=== PATIENT | male | born 1955 | race Caucasian/White ===

== ENCOUNTER → 2018-10-02 | Outpatient (CLI) | payer MEDICARE ==
[~2018-10-02] MED LIST: DOLOPHINE HCL10 MG PO; FLEXERIL PO; IBUPROFEN 400400 M1 PO; LIORESAL 10 MG10 MG PO; LISINOPRIL20 MG PO; LORTAB 10-3251 EACH PO; NABUMETONE PO; NORCO 10-325 T1 EACH PO; PROTONIX40 M2 PO; XANAX 0.5 MG0.5 MG PO
== END ==
LOC: M.WC 10-01 13:00
DX: L03.115 Cellulitis of right lower limb (principal); G47.30 Sleep apnea, unspecified; I10 Essential (primary) hypertension; F32.9 Major depressive disorder, single episode, unspecified; Z87.891 Personal history of nicotine dependence; Z96.659 Presence of unspecified artificial knee joint; Z79.82 Long term (current) use of aspirin

== ENCOUNTER → 2018-10-04 | Outpatient (CLI) | payer MEDICARE | LOC: M.WC 04:57 | DX: L03.115 Cellulitis of right lower limb (principal); G47.30 Sleep apnea, unspecified; I10 Essential (primary) hypertension; F32.9 Major depressive disorder, single episode, unspecified; Z96.659 Presence of unspecified artificial knee joint; Z79.82 Long term (current) use of aspirin; Z87.891 Personal history of nicotine dependence ==

== ENCOUNTER → 2018-10-07 | Outpatient (CLI) | payer MEDICARE | LOC: M.WC 10-06 00:42 | DX: L03.115 Cellulitis of right lower limb (principal); G47.30 Sleep apnea, unspecified; I10 Essential (primary) hypertension; F32.9 Major depressive disorder, single episode, unspecified; Z87.891 Personal history of nicotine dependence ==

== ENCOUNTER → 2018-10-09 | Outpatient (CLI) | payer MEDICARE | LOC: M.WC 04:54 | DX: L03.115 Cellulitis of right lower limb (principal); G47.30 Sleep apnea, unspecified; I10 Essential (primary) hypertension; F32.9 Major depressive disorder, single episode, unspecified; Z87.891 Personal history of nicotine dependence ==

== ENCOUNTER 2020-02-09 06:09 | Inpatient (IN) | payer MEDICARE ==
[2020-02-03 10:21] LABS: ABSOLUTE BASOPHILS 0.1 thou/uL (0.0-0.2); ABSOLUTE LYMPHOCYTES 2.3 thou/uL (0.8-5.3); ABSOLUTE MONOCYTES 0.7 thou/uL (0.0-1.2); ABSOLUTE NEUTROPHILS 5.9 thou/uL (1.6-8.1); BASOPHILS 0.9 %; EOSINOPHILS 0.5 %; HEMATOCRIT 44.8 % (42.0-52.0); HEMOGLOBIN 15.9 gm/dL (14.0-18.0); LYMPHOCYTES 25.8 %; MCH 31.4 pg (26.0-34.0); MCHC 35.5 g/dL (28.0-37.0); MCV 88.5 fL (80.0-100.0); MONOCYTES 7.8 %; MPV 9.4 fl. (7.2-11.1); NUCLEATED RBCS 0 /100WBC; PLATELET COUNT* 165 thou/uL (150-400); RBC 5.06 mil/uL (4.50-6.00); RDW-CV 14.3 % (10.5-14.5); WBC 9.1 thou/uL (4.0-11.0)
[2020-02-03 10:32] LABS: APTT 26.4 Seconds (25.0-31.3); PROTIME 10.4 Seconds (9.20-11.50)
[2020-02-03 10:42] LABS: ALBUMIN 3.9 g/dL (3.4-5.0); CALCIUM 8.6 mg/dL (8.5-10.1); CREATININE 0.9 mg/dL (0.6-1.3); POTASSIUM 3.5 mmol/L (3.5-5.1); TOTAL BILIRUBIN 0.5 mg/dL (<0.1-1.0); TOTAL PROTEIN 7.1 g/dL (6.4-8.2)
[2020-02-03 11:46] LABS: ESR (SEDRATE) 2 mm/hr (0-20)
[2020-02-04 02:07] LABS: GLYCOHEMOGLOBIN (HGB A1C) 5.8 % (4.8-5.6)
[~2020-02-09] VITALS: Ht 175.3 cm; Wt 129.3 kg
[~2020-02-09 06:09] MED LIST changes: +CHLORTHALIDONE25 MG PO; +IBU800 MG PO; +LYRICA100 MG PO; +NORCO 10-325 T1 EAC1 PO
[2020-02-09 09:30] VITALS: BP 135/78
[2020-02-09 12:44] VITALS: BP 110/67
--- NOTE | 2020-02-09 15:26 | OP ---
[address] [address] OPERATIVE REPORT Name: JEREMY DUMONT Room: [address] Zohra Lopez#: [id number] Admission: 02/09/20 Attend Phys: Jazmyne Garcia Discharge: Date of : 55 Report #: [id number] THIS REPORT FOR: //name// cc: Caio Castillo MD, Dean L. MD ~ THIS REPORT FOR: //name// CC: Caio Stone DICTATED BY: Alireza Camarillo DO DATE OF SERVICE: 02/09/2020 PREOPERATIVE DIAGNOSIS: Advanced degenerative joint disease. POSTOPERATIVE DIAGNOSES: Advanced degenerative joint disease, right knee with flexion and varus fixed contractures. PROCEDURE PERFORMED: Complex right total knee arthroplasty due to the fixed varus and flexion deformity using the Biomet Vanguard system with the following components. 1. Size 65 PS femoral component. 2. Size 75 tibial baseplate. 3. Size 12-mm PS plus tibial bearing. 4. Size 34-mm asymmetric patella. 5. Two bags of Biomet bone cement. SURGEON: Vinh Collado DO [employer]ARMWORK[employer] DAIRY: Alireza Camarillo DO; and Molina Huang DO ANESTHESIA: General with continuous nerve block by Anesthesia. ESTIMATED BLOOD LOSS: 100 mL. COMPLICATIONS: None. SPECIMENS: None. DISPOSITION: Stable to PACU. ANTIBIOTICS: A 3 grams IV Ancef given preoperatively. TOURNIQUET: 86 minutes at [address] [address] OPERATIVE REPORT Name: JEREMY DUMONT Room: [address] John#: [id number] Admission: 02/09/20 Attend Phys: Jazmyne Garcia Discharge: Date of : 55 Report #: [id number] INDICATIONS: The patient is a 64-year-old male, who we follow in clinic for quite some time regarding right knee pain. He had known DJD. He failed all conservative measures. He had pain on a daily basis, which were interfering with his ADLs. He was therefore offered a total knee arthroplasty. Of note, he had his left total knee done in the past and his range of motion on that side is 10-90. OPERATIVE FINDINGS: His range of motion was checked prior to making incision. On the right, his range of motion was 15-90. He had a fixed varus contracture. On the left, his range of motion is 10-90. Upon operative inspection of the knee, he was found to have a normal-appearing joint effusion. Hypertrophic synovitis. Significant osteophytes present. Subchondral sclerosis and eburnation of bone. DESCRIPTION OF PROCEDURE: The patient was seen in the preoperative area. Written consent was obtained. The operative site was marked. He was brought back to the operative suite and placed supine on a well-padded operative table. He was given the benefit of general anesthesia. A well-padded pneumatic tourniquet was applied to the right proximal thigh. Right lower extremity was prepped and draped in normal sterile fashion. A surgical timeout was performed. Correct side, site, procedure were verified. Everyone present was in agreement. Procedure began with inflation of the tourniquet to 300 mmHg. This deflated at the end of the procedure for a total time of 86 minutes. A standard midline incision was made. Sharp dissection down to the level of the capsule. A new blade was used to create a standard medial parapatellar arthrotomy. Medial capsular sleeve was created. Anterior horn of the medial and lateral menisci were incised. The patella was subluxed laterally. The fat pad was excised. We brought the knee into full extension. The drill was used to localize the femoral canal. The intramedullary guide was pinned into place in 5 degrees of valgus. The standard cut was made. We then turned our attention to the tibia. The extramedullary guide was aligned along the center of the ankle and the second ray. We measured 10 mm off the high lateral side. The cut was made in standard fashion. Excess bone was removed. Knee was brought to full extension. We were unable to fit the 10 block in either extension or flexion. We therefore decided to recut the tibia. A 4 more mm was taken. Brought the knee into extension. It was still tight with the 10-mm block. Flexion allowed for the block to be inserted. We therefore decided to recut the distal femur. An extra 2 was taken. The knee was brought to full extension. The 10-mm block fit in this position. We did a posterior release. We went back to the femur, which measured 65. The 4-in-1 cutting block was pinned in place. Cuts were made in standard fashion. We excised the remainder of the menisci. The tibia measured to 75. This was pinned into place, referencing the medial third of the tibial tubercle. The trial femoral component was inserted. Ten block allowed for full flexion and extension. It was slightly lax in both flexion and extension. We therefore trialed the 12, which allowed [place] [address] OPERATIVE REPORT Name: JEREMY DUMONT Room: [address] [facility] Zohra Lopez#: [id number] Admission: 02/09/20 Attend Phys: Jazmyne Garcia Discharge: Date of : 55 Report #: [id number] gaps. The patella was reamed using the Felipe reaming system. Measured a 34. Three peg holes were drilled. Patellar tracked well. The trial components were removed. The tibia was prepped in standard fashion with a drill followed by the cruciform punch. All bone ends were thoroughly irrigated. Orthopedic cocktail was injected into the posterior capsule. The final components were impacted into place. The knee was brought to full extension and allowed for time for the cement to harden. After the appropriate timing, the knee was again taken through range of motion. A 12-mm poly was allowed for full flexion and extension, 0-125 with symmetric gaps and good balancing. The final 12-mm poly was inserted. The bar was placed in the appropriate position. Tourniquet was deflated for a total time of 86 minutes. Hemostasis was achieved throughout. Vancomycin powder was placed in the joint in both the joint and the subcutaneous tissue. The capsular tissue was closed with #1 Vicryl in [id number] fashion, reinforced with a running #1 Stratafix. The tissue was again thoroughly irrigated. Subcutaneous tissue was closed with 2-0 Vicryl in simple inverted interrupted fashion. This was reinforced with a running 3-0 Stratafix and extubated with skin glue. Sterile Mepilex was applied. The patient was awoken from anesthesia and transferred to PACU in stable condition. There were no obvious complications. Clare and sponge counts correct x 2. Dr. Collado was present for all critical aspects of the case. <ELECTRONICALLY SIGNED> By: Vinh Collado DO 02/09/20 1526 [id number] Collado DO /nt
[2020-02-09 19:40] VITALS: BP 125/62
[2020-02-09 21:06] LABS: CALCIUM 8.2 mg/dL (8.5-10.1); CREATININE 1.1 mg/dL (0.6-1.3); MAGNESIUM 1.9 mg/dL (1.8-2.4); POTASSIUM 4.2 mmol/L (3.5-5.1)
[2020-02-10] VITALS: BP 120/61
[2020-02-10 04:00] VITALS: BP 130/60
[2020-02-10 05:55] LABS: HEMATOCRIT 37.3 % (42.0-52.0); HEMOGLOBIN 12.8 gm/dL (14.0-18.0)
[2020-02-10 08:07] VITALS: BP 132/67
[2020-02-10 16:21] VITALS: BP 100/32
[2020-02-10 20:00] VITALS: BP 111/45
[2020-02-11 03:53] LABS: HEMOGLOBIN 12.3 gm/dL (14.0-18.0)
[2020-02-11 04:00] VITALS: BP 112/43
[2020-02-11 09:24] VITALS: BP 114/52
[2020-02-11 16:00] VITALS: BP 120/56
[2020-02-11 20:00] VITALS: BP 129/49
[2020-02-12 07:35] VITALS: BP 123/58
[2020-02-12] MEDS ORDERED: TRAMADOL 50 MG50 MG PO (11:20)
[2020-02-12] MEDS ORDERED: ELIQUIS2.5 MG PO (11:21)
[2020-02-12] MEDS ORDERED: OXYCODONE HCL 55 MG PO (11:23)
[2020-02-12] MEDS ORDERED: OXYCODONE HCL10 MG PO (11:24)
[2020-02-12] MEDS ORDERED: COLACE100 MG PO (11:28)
[2020-02-12] MEDS ORDERED: METAMUCIL660 GM PO (11:32)
[2020-02-12 12:07] VITALS: BP 123/58
[2020-02-12] MEDS ORDERED: ASPIRIN325 PO (12:18)
[2020-02-12 13:53] VITALS: BP 123/58
== END 2020-02-12 13:57 | disposition home or self-care (01) | DRG 470 ==
LOC: M.TBA 06:09 → M.PRE 08:02 → M.ORTHSURG 11:18 → M.PRE 19:23 → M.ORTHSURG 02-10 11:08
PROVIDERS: Orthopaedic Surgery; ADMIT Internal Medicine; ATTEND Internal Medicine
PROC: 0SRC0J9 Replacement of Right Knee Joint with Synthetic Substitute, Cemented, Open Approach (ICD-10-PCS; principal; 2020-02-09)
DX: M17.11 Unilateral primary osteoarthritis, right knee (principal); G89.29 Other chronic pain; M54.5 Low back pain; F17.210 Nicotine dependence, cigarettes, uncomplicated; M79.7 Fibromyalgia; I10 Essential (primary) hypertension; G47.33 Obstructive sleep apnea (adult) (pediatric); Z79.01 Long term (current) use of anticoagulants; Z79.899 Other long term (current) drug therapy; Z79.82 Long term (current) use of aspirin; Z90.49 Acquired absence of other specified parts of digestive tract; Z03.818 Encounter for observation for suspected exposure to other biological agents ruled out

== ENCOUNTER 2020-04-17 23:08 | Emergency (ER) | payer MEDICARE ==
[~2020-04-17] VITALS: Ht 175.3 cm; Wt 136.1 kg
[~2020-04-17 23:08] MED LIST changes: +ASPIRIN325 PO; +COLACE100 MG PO; +ELIQUIS2.5 MG PO; +METAMUCIL660 GM PO; +OXYCODONE HCL 55 MG PO; +OXYCODONE HCL10 MG PO; +TRAMADOL 50 MG50 MG PO
[2020-04-18 00:14] LABS: ABSOLUTE BASOPHILS 0.1 thou/uL (0.0-0.2); ABSOLUTE LYMPHOCYTES 1.2 thou/uL (0.8-5.3); ABSOLUTE MONOCYTES 0.5 thou/uL (0.0-1.2); ABSOLUTE NEUTROPHILS 8.3 thou/uL (1.6-8.1); BASOPHILS 0.9 %; EOSINOPHILS 0.1 %; HEMATOCRIT 41.9 % (42.0-52.0); HEMOGLOBIN 14.5 gm/dL (14.0-18.0); LYMPHOCYTES 12.1 %; MCH 30.8 pg (26.0-34.0); MCHC 34.7 g/dL (28.0-37.0); MCV 88.9 fL (80.0-100.0); MONOCYTES 4.5 %; MPV 9.1 fl. (7.2-11.1); NUCLEATED RBCS 0 /100WBC; PLATELET COUNT* 129 thou/uL (150-400); POLYS 82.4 %; RBC 4.71 mil/uL (4.50-6.00); RDW-CV 13.9 % (10.5-14.5)
[2020-04-18 00:36] LABS: CALCIUM 8.2 mg/dL (8.5-10.1); CREATININE 1.1 mg/dL (0.6-1.3); POTASSIUM 3.5 mmol/L (3.5-5.1)
[2020-04-18 00:40] LABS: ALBUMIN 3.1 g/dL (3.4-5.0); MAGNESIUM 1.7 mg/dL (1.8-2.4); TOTAL BILIRUBIN 0.4 mg/dL (<0.1-1.0); TOTAL PROTEIN 6.4 g/dL (6.4-8.2)
[2020-04-18 03:16] LABS: URINE BILIRUBIN NEGATIVE (Negative); URINE BLOOD TRACE (Negative); URINE CLARITY CLEAR; URINE COLOR DARK YELLOW; URINE GLUCOSE-RANDOM NEGATIVE (Negative); URINE KETONES TRACE (Negative); URINE LEUKOCYTES-REFLEX NEGATIVE (Negative); URINE NITRITE-REFLEX NEGATIVE (Negative); URINE PROTEIN TRACE (Negative); URINE SPECIFIC GRAVITY >= 1.030 (1.005-1.030); URINE UROBILINOGEN 0.2 E.U./dl (0.2-1.0)
[2020-04-18 03:54] VITALS: BP 117/68
== END 2020-04-18 03:56 | disposition home or self-care (01) ==
LOC: M.ERS 23:08
PROVIDERS: Emergency Medicine
DX: R50.9 Fever, unspecified (principal); Z20.828 Contact with and (suspected) exposure to other viral communicable diseases; R10.11 Right upper quadrant pain; M79.7 Fibromyalgia; G89.29 Other chronic pain; Z79.899 Other long term (current) drug therapy; Z90.49 Acquired absence of other specified parts of digestive tract; Z98.890 Other specified postprocedural states